=== PATIENT | female | born 1990 | race Caucasian/White ===

== ENCOUNTER 2023-08-07 22:53 | Emergency (ER) | payer SELFPAY ==
[2023-08-08 01:10] LABS: BASOPHILS PERCENT AUTO 0.4 % (0.0-1.0); EOSINOPHILS ABSOLUTE AUTO 0.2 K/mm3 (0.0-0.4); HEMATOCRIT 43.5 % (37.0-47.0); HEMOGLOBIN 14.9 gm/dl (12.0-16.0); IMMATURE GRAN ABSOLUTE AUTO 0.02 K/mm3 (0.00-0.05); IMMATURE GRAN PERCENT AUTO 0.3 % (0.0-0.4); LYMPHOCYTES ABSOLUTE AUTO 2.7 K/mm3 (1.0-4.8); LYMPHOCYTES PERCENT AUTO 36.6 % (24.0-44.0); MEAN CORPUSCULAR HGB CONC 34.3 g/dl (32.0-36.0); MEAN CORPUSCULAR VOLUME 87.5 fl (83.0-99.0); MEAN PLATELET VOLUME 10.2 fl (9.4-12.3); MONOCYTES ABSOLUTE AUTO 0.5 K/mm3 (0.0-0.8); MONOCYTES PERCENT AUTO 7.1 % (0.0-8.0); NEUTROPHILS PERCENT AUTO 53.6 % (41.0-71.0); PLATELET COUNT,PLT 289 K/mm3 (150-400); RED BLOOD CELL COUNT 4.97 M/mm3 (4.10-5.30); WHITE BLOOD CELL COUNT,WBC 7.37 K/mm3 (3.9-11.3)
[2023-08-08] MEDS ORDERED: Iopamidol 612 MG/ML 100 ML Bottle IVPUSH ONE (01:13)
[2023-08-08 01:30] LABS: INR 0.93
[2023-08-08 01:32] LABS: PTT,PARTIAL THROMBOPLSTIN TIME 28.1 SECONDS (21.7-31.4)
[2023-08-08 01:41] LABS: ALANINE AMINOTRANSFERASE,ALT 66 U/L (14-59); ALBUMIN 3.9 g/dl (3.4-5.0); ALKALINE PHOSPHATASE 84 U/L (46-116); ANION GAP 12.4 (5-15); ASPARTATE AMNIOTRANSFERASE,AST 29 U/L (15-37); BILIRUBIN TOTAL 0.3 mg/dL (0.2-1.0); BLOOD UREA NITROGEN,BUN 19 mg/dL (7-18); BUN/CREATININE RATIO 27.1 (14-18); C-REACTIVE PROTEIN <0.2 mg/dL (<1.0); CALCIUM 9.3 mg/dL (8.5-10.1); CARBON DIOXIDE,CO2 29 mEq/L (21-32); CHLORIDE,CL 102 mEq/L (98-107); CREATININE 0.7 mg/dL (0.55-1.02); EST CRCL DRUG DOSING (CG) 84.65 mL/min; ESTIMATED GFR 116 mL/min (>60); GLUCOSE RANDOM 119 mg/dL (70-99); POTASSIUM,K 3.4 mEq/L (3.5-5.1); PROTEIN TOTAL,TP 7.7 g/dl (6.4-8.2); SODIUM,NA 140 mEq/L (136-145)
[2023-08-08 02:00] LABS: CORONAVIRUS COVID-19 NAA NEGATIVE (NEGATIVE); INFLUENZA A NAA NEGATIVE (NEGATIVE); RESPIRATORY SYNCYTIAL VIR NAA NEGATIVE (NEGATIVE)
== END 2023-08-08 02:37 | disposition home or self-care (01) ==
LOC: JD.ED 22:53
DX: R09.89 Other specified symptoms and signs involving the circulatory and respiratory systems (principal); R49.0 Dysphonia; Z20.822 Contact with and (suspected) exposure to COVID-19
CPT/HCPCS: 0241U; 36415; 70491; 80053; 83735; 84443; 85025; 85610; 85730; 86140; 93005; 99285; 93010; 99284

== ENCOUNTER 2024-09-16 16:05 | Emergency (ER) | payer SELFPAY ==
[2024-09-16] MEDS: Sodium Chloride 0.9% 1,000 ML IV ONE (16:33)
[2024-09-16 16:42] LABS: BASOPHILS PERCENT AUTO 0.3 % (0.0-1.0); EOSINOPHILS ABSOLUTE AUTO 0.1 K/mm3 (0.0-0.4); EOSINOPHILS PERCENT AUTO 1.1 % (0.0-6.0); HEMATOCRIT 39.3 % (37.0-47.0); HEMOGLOBIN 13.8 gm/dl (12.0-16.0); IMMATURE GRAN ABSOLUTE AUTO 0.02 K/mm3 (0.00-0.05); IMMATURE GRAN PERCENT AUTO 0.3 % (0.0-0.4); LYMPHOCYTES ABSOLUTE AUTO 3.1 K/mm3 (1.0-4.8); LYMPHOCYTES PERCENT AUTO 42.1 % (24.0-44.0); MEAN CORPUSCULAR HEMOGLOBIN 30.3 pg (28.0-32.0); MEAN CORPUSCULAR HGB CONC 35.1 g/dl (32.0-36.0); MEAN CORPUSCULAR VOLUME 86.4 fl (83.0-99.0); MEAN PLATELET VOLUME 9.3 fl (9.4-12.3); MONOCYTES ABSOLUTE AUTO 0.4 K/mm3 (0.0-0.8); MONOCYTES PERCENT AUTO 5.2 % (0.0-8.0); NEUTROPHILS ABSOLUTE AUTO 3.7 K/mm3 (1.8-7.7); PLATELET COUNT,PLT 336 K/mm3 (150-400); RED BLOOD CELL COUNT 4.55 M/mm3 (4.10-5.30); WHITE BLOOD CELL COUNT,WBC 7.24 K/mm3 (3.9-11.3)
[2024-09-16] MEDS: Metoclopramide 10 MG/2 ML SDV IVPUSH ONE (16:47)
[2024-09-16 17:14] LABS: A/G RATIO 1.2 (1-2); ALANINE AMINOTRANSFERASE,ALT 129 U/L (14-59); ALBUMIN 3.9 g/dl (3.4-5.0); ALKALINE PHOSPHATASE 67 U/L (46-116); ANION GAP 15.1 (5-15); ASPARTATE AMNIOTRANSFERASE,AST 74 U/L (15-37); BILIRUBIN TOTAL 0.5 mg/dL (0.2-1.0); BLOOD UREA NITROGEN,BUN 13 mg/dL (7-18); BUN/CREATININE RATIO 16.3 (14-18); CALCIUM 8.9 mg/dL (8.5-10.1); CARBON DIOXIDE,CO2 24 mEq/L (21-32); CHLORIDE,CL 102 mEq/L (98-107); CREATININE 0.8 mg/dL (0.55-1.02); EST CRCL DRUG DOSING (CG) 80.42 mL/min; ESTIMATED GFR 98 mL/min (>60); GLUCOSE RANDOM 128 mg/dL (70-99); MAGNESIUM 1.8 mg/dL (1.8-2.4); POTASSIUM,K 3.1 mEq/L (3.5-5.1); PROTEIN TOTAL,TP 7.1 g/dl (6.4-8.2); SODIUM,NA 138 mEq/L (136-145)
[2024-09-16 17:17] LABS: TROPONIN I HIGH SENSITIVITY < 4 pg/mL (<=51)
[2024-09-16 18:40] LABS: APPEARANCE,URINE CLEAR (Clear); BILIRUBIN,URINE NEGATIVE (Negative); COLOR,URINE YELLOW (Yellow); GLUCOSE,URINE NEGATIVE (Negative); KETONES,URINE NEGATIVE (Negative); LEUKOCYTE ESTERASE,URINE TRACE (Negative); NITRITE,URINE NEGATIVE (Negative); OCCULT BLOOD,URINE 1+ (Negative); PH,URINE 7.5 (5.0-8.0); PROTEIN,URINE NEGATIVE (Negative); UROBILINOGEN,URINE 0.2 (0.2-1.0)
[2024-09-16] MEDS: Meclizine 25 MG Tab PO ONE ×2 (18:43→20:13)
[2024-09-16 18:48] LABS: BACTERIA,URINE FEW /hpf (FEW); MUCUS,URINE FEW /hpf (FEW); RBC,URINE 0-5 /hpf (0-5); WBC,URINE 0-5 /hpf (0-5)
[2024-09-16 19:42] LABS: TSH 1.233 uIU/mL (0.358-3.74)
[2024-09-16] MEDS: Ondansetron 4 MG/2 ML SDV IVPUSH ONE (20:11)
== END 2024-09-16 21:00 | disposition home or self-care (01) ==
LOC: JD.ED 16:05
DX: R42 Dizziness and giddiness (principal); Z88.8 Allergy status to other drugs, medicaments and biological substances
CPT/HCPCS: 36415; 80053; 81001; 83735; 84443; 84484; 84703; 85025; 93005; 96361; 96374; 96375; 99285; A9270; J2405; J2765; J7030; 93010; 99284